=== PATIENT | male | born 1985 | race Caucasian/White ===

== ENCOUNTER 2022-06-05 05:45 | Day surgery (SDC) | payer OTHER ==
[~2022-06-05] VITALS: Ht 177.8 cm; Wt 85.7 kg
== END 2022-06-05 10:15 | disposition home or self-care (01) ==
LOC: CIR.AMB 05:45
PROVIDERS: ATTEND Surgery
DX: L72.0 Epidermal cyst (principal); R22.2 Localized swelling, mass and lump, trunk; Z20.822 Contact with and (suspected) exposure to COVID-19